=== PATIENT | male | born 1940 | race Caucasian/White ===

== ENCOUNTER 2021-02-25 13:29 | Emergency (ER) | payer MEDICARE ==
[~2021-02-25] VITALS: Ht 185.4 cm; Wt 81.7 kg
[2021-02-25 15:39] LABS: ABSOLUTE NEUTROPHILS 4.7 thou/uL (1.4-8.2); BASOPHILS 1.2 % (0.0-2.0); EOSINOPHILS 4.4 % (0.0-3.0); HEMATOCRIT 32.4 % (42.0-52.0); LYMPHOCYTES 14.8 % (24.0-44.0); MCH 36.7 pg (26.0-34.0); MONOCYTES 10.9 % (1.0-8.0); PLATELET COUNT 170 thou/uL (150-400); POLYS 68.7 % (36.0-66.0); RDW 14.2 % (10.5-14.5); WBC 6.9 thou/uL (4.0-11.0)
[2021-02-25 15:49] LABS: ANION GAP 5 mmol/L (7-16); BUN 12 mg/dL (7-18); CALCIUM 8.5 mg/dL (8.5-10.1); CHLORIDE 105 mmol/L (98-107); CO2 29 mmol/L (21-32); GLUCOSE 86 mg/dL (74-106); POTASSIUM 4.1 mmol/L (3.5-5.1); SODIUM 139 mmol/L (136-145)
[2021-02-25 15:59] LABS: ALBUMIN 3.8 g/dL (3.4-5.0); SGOT 38 U/L (15-37); SGPT 40 U/L (16-63); TOTAL BILIRUBIN 0.8 mg/dL (0.2-1.0); TROPONIN-I <0.06 ng/mL (<0.06)
[2021-02-25 16:33] LABS: URINE BILIRUBIN NEGATIVE (Negative); URINE BLOOD NEGATIVE (Negative); URINE CLARITY CLEAR; URINE COLOR YELLOW; URINE GLUCOSE-RANDOM* NEGATIVE (Negative); URINE KETONES NEGATIVE (Negative); URINE LEUKOCYTES-REFLEX NEGATIVE (Negative); URINE NITRITE-REFLEX NEGATIVE (Negative); URINE PROTEIN (DIPSTICK) NEGATIVE (Negative); URINE SPECIFIC GRAVITY <= 1.005 (1.005-1.035); URINE UROBILINOGEN 0.2 E.U./dl (0.2-1.0)
[2021-02-25 19:55] VITALS: BP 158/77
--- NOTE | 2021-02-26 10:45 | EKG ---
[facility] [place] [address] ELECTROCARDIOGRAM REPORT Name: SOCRATES DAVEY [id number] Admission: 02/25/21 Attend Phys: Discharge: 02/25/21 Date of : 38 Report #: [id number] [facility] ED Test Date: 2021-02-25 Test Time: 15:35:17 Pat Name: SOCRATES DAVEY Department: Room: Gender: M [employer]: KF : 1940 Requested By: Una Huber Order Number: [id number] MD: Gerardo Brumfield Measurements Intervals [place] Rate: 63 P: [place]: QRS: 42 QRSD: 111 T: 58 QT: 412 QTc: 422 Interpretive Statements Sinus rhythm RSR' in V1 or V2, probably normal variant Compared to ECG 10/09/2006 08:54:02 No significant change was found Electronically Signed On 02-26-2021 10:45:08 CDT by Gerardo Brumfield [email or web address] <ELECTRONICALLY SIGNED> By: Gerardo Brumfield MD, [facility] 02/26/21 1045 1535 1535 Gerardo Brumfield MD, FACC /EPI
== END 2021-02-25 19:55 | disposition home or self-care (01) ==
LOC: ER 13:29
PROVIDERS: Nurse Practitioner Family
DX: R05 Cough (principal); R50.9 Fever, unspecified; K21.9 Gastro-esophageal reflux disease without esophagitis; Z20.822 Contact with and (suspected) exposure to COVID-19; Z88.0 Allergy status to penicillin